=== PATIENT | female | born 2000 | race Two or more races ===

== ENCOUNTER 2023-01-18 00:15 | Inpatient (IN) | payer OTHER ==
[~2023-01-18] VITALS: Ht 152.4 cm; Wt 64.0 kg
== END 2023-02-12 15:33 | disposition home or self-care (01) | DRG 757 ==
LOC: ER 00:15 → OB/GYN 15:01 → SEC-K 15:01 → OB/GYN 15:41 → MEDJ 01-20 16:27
PROVIDERS: ADMIT Obstetrics & Gynecology; ATTEND Obstetrics & Gynecology
PROC: BW21YZZ Computerized Tomography (CT Scan) of Abdomen and Pelvis using Other Contrast (ICD-10-PCS; principal; 2023-01-18)
PROC: BW4GZZZ Ultrasonography of Pelvic Region (ICD-10-PCS; 2023-01-18)
PROC: 8E0ZXY6 Isolation (ICD-10-PCS; 2023-01-20)
PROC: BB24YZZ Computerized Tomography (CT Scan) of Bilateral Lungs using Other Contrast (ICD-10-PCS; 2023-01-20)
PROC: 0J9C30Z Drainage of Pelvic Region Subcutaneous Tissue and Fascia with Drainage Device, Percutaneous Approach (ICD-10-PCS; 2023-01-20)
PROC: 0U9 Female Reproductive System, Drainage (ICD-10-PCS; 2023-01-20)
PROC: 0U9 Female Reproductive System, Drainage (ICD-10-PCS; 2023-01-20)
PROC: BW21Y0Z Computerized Tomography (CT Scan) of Abdomen and Pelvis using Other Contrast, Unenhanced and Enhanced (ICD-10-PCS; 2023-01-26)
PROC: 0W9F30Z Drainage of Abdominal Wall with Drainage Device, Percutaneous Approach (ICD-10-PCS; 2023-01-26)
PROC: BW21Y0Z Computerized Tomography (CT Scan) of Abdomen and Pelvis using Other Contrast, Unenhanced and Enhanced (ICD-10-PCS; 2023-02-03)
PROC: 0W9F30Z Drainage of Abdominal Wall with Drainage Device, Percutaneous Approach (ICD-10-PCS; 2023-02-04)
PROC: 0W2FX0Z Change Drainage Device in Abdominal Wall, External Approach (ICD-10-PCS; 2023-02-04)
PROC: BW21ZZZ Computerized Tomography (CT Scan) of Abdomen and Pelvis (ICD-10-PCS; 2023-02-09)
DX: N73.8 Other specified female pelvic inflammatory diseases (principal); A41.9 Sepsis, unspecified organism; J98.11 Atelectasis; Z20.822 Contact with and (suspected) exposure to COVID-19; N70.91 Salpingitis, unspecified; R09.02 Hypoxemia
CPT/HCPCS: 71275